=== PATIENT | female | born 1935 | race Caucasian/White ===

== ENCOUNTER 2019-05-12 13:27 | Emergency (ER) | payer MEDICARE, BC, OTHER, SELFPAY ==
--- NOTE | ~2019-05-12 | XR_ITS ---
EXAMINATION: XR chest 2V DATE: 05/12/2019 14:35 INDICATION: Cough and fever. TECHNIQUE: Frontal and lateral views of the chest were obtained. COMPARISON: Chest 2 views 01/24/2017, chest CT 08/24/2012, CT abdomen and pelvis 12/30/2017 FINDINGS: Again seen is scarring in the lateral aspect of left lower lobe. There is mild scarring at right lung apex. No pleural effusion or pneumothorax. Cardiomegaly is noted. IMPRESSION: 1. Chronic scarring at right lung apex and in left lower lobe. 2. Cardiomegaly. Reviewed, dictated and finalized at [facility]. [employer]
[2019-05-12 14:10] VITALS: BP 135/68; PULSE 72; RESP 20; TEMP 36.6; O2SAT 97
--- NOTE | 2019-05-12 14:17 | ED.URI ---
HPI - URI/Sore Throat General Chief Complaint: Upper Respiratory Infection Stated Complaint: fever/cough History of Present Illness HPI Narrative: This is a 84 year old female that complains of intermittent coughing and fever for the past 10 days with not relief. Patient states that she is tired and she aches. Patient denies shortness of breath but states that she has a inhaler and she uses it as directed. Related Data Home Medications Medication Instructions Recorded Confirmed folic acid 1 mg PO DAILY 05/12/19 05/12/19 levothyroxine 25 mcg PO DAILY 05/12/19 05/12/19 metoprolol tartrate 50 mg PO Q12H 05/12/19 05/12/19 pravastatin 40 mg PO DAILY 05/12/19 05/12/19 rivaroxaban [Xarelto] 20 mg PO DAILY 05/12/19 05/12/19 tiotropium bromide [Spiriva 2 inh INHALATION QAM 05/12/19 05/12/19 Respimat] Allergies Allergy/AdvReac Type Severity Reaction Status Date / Time No Known Allergies Allergy Unknown Verified 05/12/19 14:06 Review of Systems Review of Systems: Narrative: CONSTITUTIONAL: Denies fever, chills, or sweats. EYES: Denies visual changes, redness, or discharge. ENT: Denies rhinorrhea, congestion, sore throat, or otalgia. CARDIOVASCULAR:Denies chest pain, palpitations, or edema. RESPIRATORY: Denies cough or dyspnea. GASTROINTESTINAL: Denies abdominal pain, nausea, vomiting, or diarrhea. GENITOURINARY: Denies dysuria or hematuria. SKIN:[Denies rash or itching. MUSCULOSKELETAL:Denies back pain, joint pain, or myalgia. NEUROLOGIC: Denies headache, numbness, or weakness. PSYCHIATRIC:Denies anxiety or depression [facility] Family History Family History (Updated 06/25/17 @ 09:53 by DOCTOR UNKNOWN) Mother Hypertension Sibling Hypertension Family history of malignant neoplasm Family history of kidney disease Family history of malignant neoplasm of breast in first degree relative, Onset Age: 90 Patient's sister is Patient's brother is Father Cerebrovascular accident Patient's father is Social History Social History Smoking status: Never smoker Second hand tobacco smoke exposure: No Alcohol intake: current Comments My past medical history at time as signature, I have reviewed and agree with nursing past medical, social, surgical and family history. Please see nursing chart for further information. There is no relevant family history pertinent to the presenting complaint. Exam Narrative: Exam Narrative: GENERAL:Well-appearing, well-nourished, and in no acute distress. fatigue HEAD:Normocephalic, atraumatic. EYES: PERRLA and EOMI. ENT: Nares clear, no rhinorrhea or epistaxis. Mucous membranes moist. NECK: Supple. CHEST: Clear to auscultation. No respiratory distress. persistent coughing HEART: Regular rate and rhythm. No murmur heard. Normal peripheral pulses. ABDOMEN: Soft, nontender, nondistended, normal active bowel sounds. EXTREMITIES: Normal range of motion. No edema. SKIN: Warm, dry, no rash. NEURO: No focal deficits. Alert and oriented x3. Course Vital Signs Vital signs: Vital Signs Temperature 98 F 05/12/19 14:10 Pulse Rate 72 05/12/19 14:10 Respiratory Rate 20 05/12/19 14:10 Blood Pressure 135/68 05/12/19 14:10 Pulse Oximetry 97 05/12/19 14:10 Temperature 98 F 05/12/19 14:10 Pulse Rate 72 05/12/19 14:10 Respiratory Rate 20 05/12/19 14:10 Blood Pressure 135/68 05/12/19 14:10 Pulse Oximetry 97 05/12/19 14:10 MDM - URI/Sore Throat Lab Data Labs: Influenza A Screen Negative Reference Range: Negative Influenza B Screen Negative Reference Range: Negative Discharge Plan Discharge Clinical Impression: Bronchitis Patient Disposition: Home, Self-Care Condition: Stable Instructions: Antibiotic Form, Acute Bronchitis (ED), Acute Cough (ED) Prescriptions: New amoxicillin 500 mg capsule 500 mg PO Q12H 10 Days Qty: 20 RF: 0 benzonatate 10
== END 2019-05-12 15:28 | disposition home or self-care (01) ==
PROVIDERS: Emergency Provider Nurse Practitioner Family; PCP Family Medicine
DX: J40 Bronchitis, not specified as acute or chronic (principal); Z79.01 Long term (current) use of anticoagulants; E78.00 Pure hypercholesterolemia, unspecified; J44.9 Chronic obstructive pulmonary disease, unspecified; Z86.711 Personal history of pulmonary embolism; Z96.641 Presence of right artificial hip joint; E03.9 Hypothyroidism, unspecified
CPT/HCPCS: 71046; 87804; 99213; G0463

== ENCOUNTER 2020-12-19 13:39 | Emergency (ER) | payer MEDICARE, BC, OTHER, SELFPAY ==
--- NOTE | ~2020-12-19 | XR_ITS ---
[id number] DATE: 12/19/2020 14:08 INDICATION: Fall 5 days ago. Lateral rib pain. TECHNIQUE: PA chest. 3 views of right ribs. COMPARISON: None FINDINGS: Heart size appears normal. Is aortic calcification and mild unfolding. No hilar or mediasti nal enlargement. No pulmonary infiltrate or consolidation, pleural effusion or pulmonary vascular congestion or pneumo thorax is evident. Diffuse osteopenia. Chronic rotator cuff atrophy on the right. There are recent displaced posterolateral right seventh and eighth rib fractures. There is scoliosis and degenerative change of the thoracic and lumbar spine. 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 Reviewed, dictated and finalized at location [facility]. IMPRESSION: Displaced recent posterolateral right seventh and eighth rib fractu res Diffuse osteopenia Scoliosis and degenerative change of the thoracic and lumbar spine Rotator cuff atrophy and prominent glenohumeral osteoarthritis at right shoulde r No active cardiopulmonary disease Aortic calcification
[2020-12-19 13:50] VITALS: BP 108/79; PULSE 86; RESP 18; TEMP 36.4; O2SAT 95
--- NOTE | 2020-12-19 13:55 | ED.UPPEXIN ---
HPI - Extremity Injury (Upper) General Chief Complaint: Extremity Injury, Upper Stated Complaint: Rt side pain due Fall Source: patient and RN notes reviewed Limitations: no limitations History of Present Illness HPI narrative: The vaccinated, elderly non-smoking patient, on several meds inc Xarelto for A Fib, presents with right axillary pain. Patient states about 1/2-week ago she slipped and fell from a standing position striking the armrest of home furnishings. She complains of mild pain and bruising that's worse with motion, better at rest located more specifically in the right ribs. No fever, cough, shortness of breath, other injuries; symptoms are mild, worse with motion and unrelieved with Tylenol. Patient used Ultram in the past so will be given a refill; she also has her own incentive spirometry Related Data Home Medications Medication Instructions Recorded Confirmed folic acid 1 mg PO DAILY 05/12/19 12/19/20 metoprolol tartrate 50 mg PO Q12H 05/12/19 12/19/20 rivaroxaban [Xarelto] 20 mg PO DAILY 05/12/19 12/19/20 calcium carbonate 600 mg(1,500 1 tablet PO DAILY 09/07/19 12/19/20 mg)-vitamin D3 800 unit chewable tablet multivitamin 1 tablet PO DAILY 09/07/19 12/19/20 Allergies Allergy/AdvReac Type Severity Reaction Status Date / Time No Known Allergies Allergy Unknown Verified 12/19/20 13:45 Review of Systems Review of Systems: General/Constitutional: No weight loss,fever Eyes: N0: Redness,discharge Ears/Nose/Throat: No: Epistaxis,ear discharge Respiratory: Denies: Hemoptysis Gastrointestinal: No Vomiting, Bleeding-rectal Skin: No Lumps, eruption Neurologic: No Focal Weakness,Sz Hematologic: Denies: Petechiae/Purpura Psychiatric: No: Suicida ideationl All Other Systems: Reviewed and Negative [facility] Past Medical History Medical History Benign solitary fibrous neoplasm BMI 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-35.9,adult Carpal tunnel syndrome of left wrist COPD (chronic obstructive pulmonary disease) H/O blood clots Osteopenia Surgical History Surgical History H/O neck surgery C2 fracture History of total right hip replacement 2010 Family History Family History Mother Hypertension Sibling Hypertension Family history of malignant neoplasm Family history of kidney disease Family history of malignant neoplasm of breast in first degree relative, Onset Age: 90 Patient's sister is Patient's brother is Father Cerebrovascular accident Patient's father is Social History Social History Smoking status: Never smoker Second hand tobacco smoke exposure: No Alcohol intake: current Gender identity (if verbalized by the patient): Female Comments At time of signature, agree with nursing past medical, surgical, social and family history. There is no relevant family history pertinent to the presenting complaint Exam Narrative: General Appearance: Well nourished/overweight, in wheelchair, No distress EYE: PERRLA, Conjunctiva clear Ears: External ear normal Nose: Normal nose Mouth/Throat: Normal appearing, Normal lips Supple Skin: Warm, Dry, bruise right ribs T6-9 Respiratory: Airway patent, No respiratory distress, decreased BS at bases, otherwise CTA Cardiovascular: no JVD Abdomen: Soft, Non-tender, inc liver and spleen Neurological: A&O x3, CN II-X intact Psychiatric: Normal mood, Normal affect Course Course Emergency Course: Films visualized, interpreted by radiologist, agree, abnormal see report Vital Signs Vital signs: Vital Signs Temperature 97.5 F L 12/19/20 13:50 Pulse Rate 86 12/19/20 13:50 Respiratory Rate 18 12/19/20 13:50 Blood Pressure 108/79 12/19/20 13:50 Pulse Oximetry 95 12/19/20 13:50 Temperature 97.5 F L 12/06
== END 2020-12-19 14:30 | disposition home or self-care (01) ==
PROVIDERS: Emergency Provider Emergency Medicine; PCP Family Medicine
DX: S22.41XA Multiple fractures of ribs, right side, initial encounter for closed fracture (principal); W01.190A Fall on same level from slipping, tripping and stumbling with subsequent striking against furniture, initial encounter; J44.9 Chronic obstructive pulmonary disease, unspecified; M81.0 Age-related osteoporosis without current pathological fracture; D75.9 Disease of blood and blood-forming organs, unspecified; I48.91 Unspecified atrial fibrillation
CPT/HCPCS: 71101; 99213; G0463

== ENCOUNTER 2022-03-18 23:20 | Emergency (ER) | payer MEDICARE, BC, SELFPAY ==
[2022-03-18 23:23] VITALS: BP 151/69; PULSE 104; RESP 20; TEMP 36.2; O2SAT 96
[2022-03-19 00:28] LABS: Basophils Absolute Auto 0.1 K/mm3 (0.0-0.1); Basophils Percent Auto 0.9 % (0.2-1.2); Eosinophils Absolute Auto 0.1 K/mm3 (0-0.3); Eosinophils Percent Auto 1.8 % (0-4.4); Hematocrit 41.3 % (37.0-47.0); Hemoglobin 14.3 g/dL (12.0-15.0); Immature Granulocyte Absolute 0.02 K/mm3 (0.00-0.031); Immature Granulocyte Percent A 0.4 % (0-0.5); Lymphocytes Absolute Auto 2.09 K/mm3 (0.9-3.2); Lymphocytes Percent Auto 36.7 % (18.3-44.2); Mean Corpuscular HGB Conc 34.6 g/dl (32-36); Mean Corpuscular Hemoglobin 32.6 pg (26-34); Mean Corpuscular Volume 94.1 fl (80-100); Mean Platelet Volume 9.8 fl (7.4-10.4); Monocytes Absolute Auto 0.7 K/mm3 (0.1-0.6); Neutrophils Absolute Auto 2.8 K/mm3 (1.3-6.7); Neutrophils Percent Auto 48.2 % (45.5-73.1); Platelet Count Result 212 k/mm3 (150-375); Red Blood Count 4.39 M/mm3 (4.2-5.4); Red Cell Distribution Width 12.9 % (11.5-14.5); White Blood Count 5.7 K/mm3 (4.5-10.0)
[2022-03-19 00:38] LABS: INR 1.7; Prothrombin Time 19.7 Seconds (11.1-14.7)
[2022-03-19 00:39] LABS: Partial Thromboplastin Time 47.8 SECONDS (22.3-36.8)
[2022-03-19] MEDS: TRANEXAMIC ACID 1,000 MG/10 ML AMPUL 1000 MG TOPICAL (01:34)
[2022-03-19] MEDS: CELLULOSE OXIDIZED 2 x 14 INCH 1 PKT XX (01:34)
[2022-03-19] MEDS: LIDOCAINE 2%-EPI (FOR DENTAL BLOCK) 1.7 ML CARTRIDGE INFILTRATE (01:35)
[2022-03-19] MEDS: LIDO 1%/EPINEPHRINE 1:100,000 20 ML VIAL 10 ML INFILTRATE (01:35)
[2022-03-19 01:40] VITALS: BP 124/72; PULSE 88; RESP 16; TEMP 36; O2SAT 100
[2022-03-19 01:51] LABS: Alanine Aminotransferase 16 U/L (6-35); Albumin Level 3.9 g/dL (3.5-5.1); Alkaline Phosphatase 60 U/L (38-126); Anion Gap 6 mmol/L (8-16); Aspartate Amino Transferase 29 U/L (14-36); Bilirubin,Total 1.3 mg/dL (0.2-1.3); Blood Urea Nitrogen 20 mg/dL (7-17); Calcium 9.1 mg/dL (8.4-10.2); Carbon Dioxide 26 mmol/L (22-30); Chloride 100 mmol/L (98-107); Estimated CRCL calculation 42 ml/min; Estimated Glomerular Filt Rate 59; Glucose 103 mg/dL (65-110); Sodium 132 mmol/L (137-145)
--- NOTE | 2022-03-19 02:04 | ED.DENTAL ---
HPI - Dental/Oral General Chief complaint: Dental/Oral Stated complaint: bleeding from gums post dental extraction Time Seen by Provider: 03/18/22 23:48 History of Present Illness HPI Narrative: Patient presents with bleeding from her gums after she had her teeth pulled yesterday morning, she did have a little bit of bleeding yesterday, but today it got worse, she tried biting onto teabags but it did not help. She is currently on Xarelto daily, and had not been told to hold this medication. Related Data Home Medications Medication Instructions Recorded Confirmed folic acid 1 mg tablet 1 mg PO DAILY 05/12/19 09/30/21 metoprolol tartrate 50 mg tablet 50 mg PO Q12H 05/12/19 09/30/21 rivaroxaban 20 mg tablet (Xarelto) 20 mg PO DAILY 05/12/19 09/30/21 calcium carbonate 600 mg-vitamin 1 tablet PO DAILY 09/07/19 09/30/21 D3 20 mcg (800 unit) chewable tablet (Caltrate 600 plus D) multivitamin (Daily Multi-Vitamin 1 tablet PO DAILY 09/07/19 09/30/21 tablet) Allergies Allergy/AdvReac Type Severity Reaction Status Date / Time No Known Allergies Allergy Unknown Verified 09/30/21 07:48 Review of Systems Review of Systems: Bleeding from gums, no lightheadedness or chest pain or difficulty breathing PMFSH Past Medical History Medical History Benign solitary fibrous neoplasm BMI 34.0-34.9,adult BMI 35.0-35.9,adult Carpal tunnel syndrome of left wrist COPD (chronic obstructive pulmonary disease) H/O blood clots Osteopenia Surgical History Surgical History H/O neck surgery C2 fracture History of cataract surgery History of total right hip replacement 2010 Family History Family History Mother Hypertension Sibling Hypertension Family history of malignant neoplasm Family history of kidney disease Family history of malignant neoplasm of breast in first degree relative, Onset Age: 90 Patient's sister is Patient's brother is Father Cerebrovascular accident Patient's father is Social History Social History Smoking status: Never smoker Second hand tobacco smoke exposure: Yes Alcohol intake: current Substance use: never Substance use type: does not use 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 EYES: EOMI, conjunctiva normal ENT: Active oozing from incisors 24/25; poor hearing LUNGS: Nonlabored breathing. HEART: [Regular rate and rhythm] ABD: [Soft], nondistended EXT: Normal range of motion SKIN: [No rashes or lesions.] NEURO: [Alert and oriented x 3. No gross focal sensory or strength deficits.] PSYCH: Normal affect Course Vital Signs Vital signs: Vital Signs Temperature 97.1 F L 03/18/22 23:23 Pulse Rate 104 H 03/18/22 23:23 Respiratory Rate 20 03/18/22 23:23 Blood Pressure 151/69 H 03/18/22 23:23 Pulse Oximetry 96 03/18/22 23:23 Oxygen Delivery Room Air 03/18/22 23:23 Temperature 97.1 F L 03/18/22 23:23 Pulse Rate 104 H 03/18/22 23:23 Respiratory Rate 20 03/18/22 23:23 Blood Pressure 151/69 H 03/18/22 23:23 Pulse Oximetry 96 03/18/22 23:23 Oxygen Delivery Room Air 03/18/22 23:23 MDM - Dental/Oral MDM Narrative Medical decision making narrative: 87-year-old female presents with bleeding from gums after dental procedure, she is on a blood thinner but was not told to hold it so has been taking it every day. Vital signs stable, she is well-appearing on exam, oozing from dental socket, no signs of airway compromise. Pressure ap
== END 2022-03-19 01:45 | disposition home or self-care (01) ==
PROVIDERS: Physician Assistant; Emergency Provider Emergency Medicine; PCP Family Medicine
DX: K91.840 Postprocedural hemorrhage of a digestive system organ or structure following a digestive system procedure (principal); J44.9 Chronic obstructive pulmonary disease, unspecified; M85.80 Other specified disorders of bone density and structure, unspecified site; Z98.49 Cataract extraction status, unspecified eye; Z96.641 Presence of right artificial hip joint; Z79.01 Long term (current) use of anticoagulants
CPT/HCPCS: 36415; 80053; 85025; 85610; 85730; 99283